=== PATIENT | female | born 1965 | race Caucasian/White ===

== ENCOUNTER 2017-01-24 13:13 | Observation (INO) | payer OTHER ==
[~2017-01-24] VITALS: Ht 182.9 cm; Wt 83.3 kg
[2017-01-24 17:01] LABS: HEMATOCRIT 45.2 % (36.0-46.0); MCH 30.3 PG (29.0-34.0); MCV 91.9 FL (83-99); MEAN PLAT.VOLUME 10.9 uM^3 (9.5-12.4); PLATELET COUNT 164 K/uL (156-360); RBC DIS.WIDTH-CV 14.2 % (11.8-14.6); RBC DIS.WIDTH-SD 47.3 % (39-53); RED BLOOD COUNT 4.92 M/uL (3.80-5.20); WHITE BLOOD COUNT 7.9 K/uL (4.1-10.2)
[2017-01-24] MEDS ORDERED: ABILIFY10 MG PO (17:15)
[2017-01-24] MEDS ORDERED: LYRICA150 MG PO (17:16)
[2017-01-24] MEDS ORDERED: DESYREL 150 MG150 MG PO (17:16)
[2017-01-24] MEDS ORDERED: CELEBREX200 MG PO (17:16)
[2017-01-24] MEDS ORDERED: POTASSIUM GLUCO99 M1 PO (17:17)
[2017-01-24] MEDS ORDERED: VITAMIN B-12500 MC5 SL (17:17)
[2017-01-24] MEDS ORDERED: LASIX20 MG PO (17:18)
[2017-01-24] MEDS ORDERED: ZESTRIL40 MG PO (17:18)
[2017-01-24] MEDS ORDERED: FEOSOL325 MG PO (17:18)
[2017-01-24 17:19] LABS: CHLORIDE 99 mEq/L (99-109); POTASSIUM 3.9 mEq/L (3.7-5.4); SODIUM 143 mEq/L (136-147)
[2017-01-24] MEDS ORDERED: ZYRTEC10 M3 PO (17:19)
[2017-01-24] MEDS ORDERED: PRAVACHOL20 MG PO (17:19)
[2017-01-24] MEDS ORDERED: TYLENOL EXTRA500 MG PO (17:19)
[2017-01-24] MEDS ORDERED: PRILOSEC20 MG PO (17:19)
[2017-01-24] MEDS ORDERED: COUGH DROPS1 EACH MM (17:20)
[2017-01-24] MEDS ORDERED: ROBITUSSIN100 MG/5 M PO (17:20)
[2017-01-24 17:21] LABS: GLUCOSE 139 mg/dL (70-99)
[2017-01-24 17:22] LABS: ANION GAP 10 MEQ/L (2-14)
[2017-01-24 17:25] LABS: GFR ESTIMATE (CALCULATED) > 59 mL/min/
[2017-01-24 17:26] LABS: UREA NITROGEN (BUN) 17 mg/dL (9-23)
[2017-01-24 23:46] VITALS: BP 128/68
[2017-01-25 03:32] VITALS: BP 130/64
[2017-01-25 07:33] LABS: ANION GAP 8 MEQ/L (2-14); CHLORIDE 102 MEQ/L (99-109); GFR ESTIMATE (CALCULATED) > 59 mL/min/; GLUCOSE 154 mg/dL (70-99); POTASSIUM 4.1 MEQ/L (3.7-5.4); SAMPLE HEMOLYSIS CHECK 0; SAMPLE ICTERIC CHECK 0; SAMPLE LIPEMIA CHECK 0; SODIUM 146 MEQ/L (136-147); UREA NITROGEN (BUN) 17 mg/dL (9-23)
[2017-01-25 08:17] VITALS: BP 127/67
[2017-01-25] MEDS ORDERED: AZITHROMYCIN500 M1 PO (08:24)
[2017-01-25] MEDS ORDERED: MEDROL DOSEPAK4 MG PO (08:24)
[2017-01-25] MEDS ORDERED: VENTOLIN HFA18 GM IH (08:25)
[2017-01-25] MEDS ORDERED: SPIRIVA RESPIMAT4 GM IH (08:25)
[2017-01-25] MEDS ORDERED: NICODERM CQ1 EAC1 TD (12:41)
[2017-01-26 00:02] VITALS: BP 128/66
[2017-01-26 07:49] VITALS: BP 120/68
[2017-01-26] MEDS ORDERED: ALBUTEROL2.5 MG/3 M IH (13:03)
[2017-01-26 17:40] VITALS: BP 120/61
[2017-01-26 23:55] VITALS: BP 101/63
[2017-01-27 07:37] VITALS: BP 129/77
[2017-01-27 07:38] VITALS: BP 129/77
[2017-01-27 16:14] VITALS: BP 129/75
[2017-01-28 00:07] VITALS: BP 117/67
[2017-01-28 07:18] VITALS: BP 119/67
[2017-01-28 15:00] VITALS: BP 128/68
[2017-01-29] VITALS: BP 90/55
[2017-01-29 07:45] VITALS: BP 108/64
[2017-01-29 16:27] VITALS: BP 120/50
== END 2017-01-29 19:37 | disposition home or self-care (01) ==
LOC: EME 13:13 → EDOF 17:39 → 5SOUTH 17:39 → ENRESERV 17:40 → 5SOUTH 19:39
PROVIDERS: Emergency Medicine; Hospitalist
DX: J44.1 Chronic obstructive pulmonary disease with (acute) exacerbation (principal); J96.11 Chronic respiratory failure with hypoxia; F17.210 Nicotine dependence, cigarettes, uncomplicated; Z99.81 Dependence on supplemental oxygen; E04.1 Nontoxic single thyroid nodule; I10 Essential (primary) hypertension; E78.5 Hyperlipidemia, unspecified; G89.29 Other chronic pain; Z98.1 Arthrodesis status; F12.90 Cannabis use, unspecified, uncomplicated; Z88.0 Allergy status to penicillin; Z82.49 Family history of ischemic heart disease and other diseases of the circulatory system; Z83.3 Family history of diabetes mellitus; Z80.0 Family history of malignant neoplasm of digestive organs
CPT/HCPCS: 71020; 76536; 80048; 84443; 85027; 94640; 94640 76; 94760; 94799; 99202; 99281; 99285; G0378; J1650; J2930; J7512

== ENCOUNTER 2017-08-25 18:20 | Inpatient (IN) | payer OTHER ==
[~2017-08-25] VITALS: Ht 182.9 cm; Wt 84.4 kg
[~2017-08-25 18:20] MED LIST: ABILIFY10 MG PO; ALBUTEROL2.5 MG/3 M IH; AZITHROMYCIN500 M1 PO; CELEBREX200 MG PO; COUGH DROPS1 EACH MM; DESYREL 150 MG150 MG PO; FEOSOL325 MG PO; LASIX20 MG PO; LYRICA150 MG PO; MEDROL DOSEPAK4 MG PO; NICODERM CQ1 EAC1 TD; POTASSIUM GLUCO99 M1 PO; PRAVACHOL20 MG PO; PRILOSEC20 MG PO; ROBITUSSIN100 MG/5 M PO; SPIRIVA RESPIMAT4 GM IH; TYLENOL EXTRA500 MG PO; VENTOLIN HFA18 GM IH; VITAMIN B-12500 MC5 SL; ZESTRIL40 MG PO; ZYRTEC10 M3 PO
[2017-08-25 19:15] LABS: HEMOGLOBIN 14.8 G/DL (11.9-15.5); MCH 31.4 PG (29.0-34.0); MCHC 32.9 G/DL (30.0-36.0); MCV 95.5 FL (83-99); RBC DIS.WIDTH-CV 13.3 % (11.8-14.6); RED BLOOD COUNT 4.71 M/uL (3.80-5.20); WHITE BLOOD COUNT 8.5 K/uL (4.1-10.2)
[2017-08-25 19:24] LABS: CHLORIDE 89 mEq/L (99-109); SODIUM 138 mEq/L (136-147)
[2017-08-25 19:26] LABS: GLUCOSE 107 mg/dL (70-99)
[2017-08-25 19:30] LABS: CREATININE 1.5 mg/dL (0.6-1.3); GFR ESTIMATE (CALCULATED) 39 mL/min/
[2017-08-25 19:31] LABS: UREA NITROGEN (BUN) 31 mg/dL (9-23)
[2017-08-25 19:43] LABS: TROP-I INTERPRETATION NEGATIVE; TROPONIN-I 0.02 ng/mL (0.0-0.30)
[2017-08-25 20:06] LABS: PLAT.SUFFICIENCY DECREASED
[2017-08-25 20:07] LABS: PLATELET COUNT 106 K/uL (156-360)
[2017-08-25] MEDS ORDERED: PROVENTIL,2.5 MG/3 M IH (21:45)
[2017-08-25] MEDS ORDERED: FLEXERIL5 MG PO (21:46)
[2017-08-25] MEDS ORDERED: LEXAPRO10 MG PO (21:46)
[2017-08-25] MEDS ORDERED: OXYCODONE HCL10 MG PO (21:46)
[2017-08-25] MEDS ORDERED: LYRICA200 MG PO (21:49)
[2017-08-25 23:17] LABS: BASE EXCESS 15.2 mEq/L (-3 to +3); BICARBONATE 48.6 mEq/L (22-26); CARBOXY HGB 16.2 % (0-5); METHEMOGLOBIN 0.8 % (0-1.5); PCO2 116 mm Hg (35-45); PO2 73 mm Hg (80-100); SITE RR; pH 7.23 (7.35-7.45)
[2017-08-25 23:18] LABS: COMMENTS - BLOOD GASES C+; DEVICE NC; O2 FLOW 4 L/MIN; TOTAL RESP RATE 12 resp/min
[2017-08-25 23:51] LABS: APPEARANCE CLEAR ((CLEAR)); BILIRUBIN NEGATIVE; BLOOD NEGATIVE; COLOR COLORLESS ((YELLOW)); GLUCOSE (STRIP) NEGATIVE; KETONES NEGATIVE; LEUKOCYTES NEGATIVE; NITRITE NEGATIVE; PROTEIN (STRIP) NEGATIVE; SPECIFIC GRAVITY 1.019 (1.000-1.030); UCUL ADDED? NO; UROBILINOGEN 0.2 MG/DL (0.2-1.0)
[2017-08-26] VITALS (22 sets, daily range): BP systolic 105–129; BP diastolic 49–72
[2017-08-26 00:26] LABS: CARBOXY HGB 13.9 % (0-5); PCO2 124 mm Hg (35-45); PO2 405 mm Hg (80-100); SITE RR; pH 7.19 (7.35-7.45)
[2017-08-26 00:27] LABS: COMMENTS - BLOOD GASES C+; DEVICE NRB MASK; FI02 100 %; O2 FLOW 15 L/MIN; TOTAL RESP RATE 12 resp/min
[2017-08-26 04:17] LABS: COMMENTS - BLOOD GASES C+; DEVICE VENT; FI02 30 %; MODE NIV SIMV; SITE RR
[2017-08-26 04:18] LABS: MECHANICAL RATE 20 resp/min; PCO2 96 mm Hg (35-45); PEEP 6 CM/H20; PO2 51 mm Hg (80-100); PRES. SUPPORT 10 CM/H2O; TIDAL VOLUME 385 ML; TOTAL RESP RATE 24 resp/min
[2017-08-26 04:19] LABS: CARBOXY HGB 11.4 % (0-5); METHEMOGLOBIN 0.9 % (0-1.5); O2 SATURATION (CALCULATED) 80.2 % (95-99)
[2017-08-26 04:20] LABS: BASE EXCESS 15.4 mEq/L (-3 to +3); BICARBONATE 47.2 mEq/L (22-26)
[2017-08-26 13:01] LABS: APPEARANCE CLEAR ((CLEAR)); BILIRUBIN NEGATIVE; BLOOD NEGATIVE; COLOR YELLOW ((YELLOW)); GLUCOSE (STRIP) NEGATIVE; KETONES NEGATIVE; LEUKOCYTES NEGATIVE; NITRITE NEGATIVE; PROTEIN (STRIP) 30; SPECIFIC GRAVITY 1.026 (1.000-1.030); UCUL ADDED? NO; UROBILINOGEN 0.2 MG/DL (0.2-1.0)
[2017-08-26 21:10] LABS: BASOPHIL (%) 0.1 % (0-1); EOSINOPHIL (%) 0 % (0-5); HEMATOCRIT 44.3 % (36.0-46.0); HEMOGLOBIN 13.9 G/DL (11.9-15.5); IMMATURE GRANULOCYTE (%) 0.4 % (0.0-0.7); LYMPHOCYTE (%) 6.4 % (15-42); LYMPHOCYTE COUNT 0.4 K/uL (1.0-2.8); MCH 30.2 PG (29.0-34.0); MCHC 31.4 G/DL (30.0-36.0); MCV 96.1 FL (83-99); MONOCYTE (%) 3.4 % (3-12); MONOCYTE COUNT 0.2 K/uL (0-0.8); NEUTROPHIL (%) 89.7 % (45-76); NEUTROPHIL COUNT 6.2 K/uL (1.8-6.4); PLATELET COUNT 108 K/uL (156-360); RBC DIS.WIDTH-CV 13.5 % (11.8-14.6); RBC DIS.WIDTH-SD 48.2 % (39-53); RED BLOOD COUNT 4.61 M/uL (3.80-5.20); WHITE BLOOD COUNT 6.9 K/uL (4.1-10.2)
[2017-08-26 21:46] LABS: CHLORIDE 97 MEQ/L (99-109); MAGNESIUM 1.7 mg/dl (1.3-2.7); PHOSPHORUS 1.9 mg/dL (2.5-4.9); POTASSIUM 3.8 MEQ/L (3.7-5.4); SODIUM 142 MEQ/L (136-147); UREA NITROGEN (BUN) 22 mg/dL (9-23)
[2017-08-26 22:26] LABS: CREATININE 0.8 MG/DL (0.6-1.3); GFR ESTIMATE (CALCULATED) > 59 mL/min/; GLUCOSE 240 mg/dL (70-99)
[2017-08-26 22:27] LABS: CARBON DIOXIDE (BICARBONATE) > 40.0 MEQ/L (20-31)
[2017-08-26 23:26] LABS: COMMENTS - BLOOD GASES C+; DEVICE NC; O2 FLOW 3 L/MIN; SITE RR; TOTAL RESP RATE 16 resp/min
[2017-08-26 23:27] LABS: O2 SATURATION (CALCULATED) 88.7 % (95-99); PCO2 91 mm Hg (35-45); PO2 57 mm Hg (80-100); pH 7.35 (7.35-7.45)
[2017-08-26 23:28] LABS: BASE EXCESS 19.3 mEq/L (-3 to +3); BICARBONATE 50.2 mEq/L (22-26); CARBOXY HGB 3.8 % (0-5)
[2017-08-27] VITALS (19 sets, daily range): BP systolic 100–137; BP diastolic 58–90
[2017-08-27 05:28] LABS: HEMATOCRIT 44.5 % (36.0-46.0); HEMOGLOBIN 13.8 G/DL (11.9-15.5); MCV 96.7 FL (83-99); PLATELET COUNT 110 K/uL (156-360); RBC DIS.WIDTH-CV 13.6 % (11.8-14.6); RBC DIS.WIDTH-SD 48.5 % (39-53)
[2017-08-27 06:01] LABS: CARBOXY HGB 2.4 % (0-5); COMMENTS - BLOOD GASES C+; DEVICE NC; METHEMOGLOBIN 1.1 % (0-1.5); O2 FLOW 4 L/MIN; O2 SATURATION (CALCULATED) 93.1 % (95-99); PCO2 91 mm Hg (35-45); PO2 86 mm Hg (80-100); SITE RR; TOTAL RESP RATE 20 resp/min; pH 7.32 (7.35-7.45)
[2017-08-27 06:02] LABS: BASE EXCESS 15.8 mEq/L (-3 to +3); BICARBONATE 46.9 mEq/L (22-26)
[2017-08-27 06:28] LABS: CHLORIDE 98 MEQ/L (99-109); CREATININE 0.4 MG/DL (0.6-1.3); GFR ESTIMATE (CALCULATED) > 59 mL/min/; GLUCOSE 165 mg/dL (70-99); POTASSIUM 4.3 MEQ/L (3.7-5.4); SODIUM 144 MEQ/L (136-147); UREA NITROGEN (BUN) 23 mg/dL (9-23)
[2017-08-27 06:36] LABS: CARBON DIOXIDE (BICARBONATE) > 40.0 MEQ/L (20-31)
[2017-08-27 07:07] LABS: PHOSPHORUS 3.4 mg/dL (2.5-4.9)
[2017-08-27 11:42] LABS: THYROTROPIN (TSH) 0.13 MIU/L (0.4-5.5)
[2017-08-28] VITALS (14 sets, daily range): BP systolic 112–134; BP diastolic 63–86
[2017-08-28 05:12] LABS: HEMATOCRIT 44.8 % (36.0-46.0); MCH 29.2 PG (29.0-34.0); MCHC 31.3 G/DL (30.0-36.0); MCV 93.5 FL (83-99); PLATELET COUNT 111 K/uL (156-360); RBC DIS.WIDTH-CV 13.5 % (11.8-14.6); RBC DIS.WIDTH-SD 46.7 % (39-53); RED BLOOD COUNT 4.79 M/uL (3.80-5.20)
[2017-08-28 06:01] LABS: CHLORIDE 100 MEQ/L (99-109); CREATININE 0.4 MG/DL (0.6-1.3); GFR ESTIMATE (CALCULATED) > 59 mL/min/; GLUCOSE 165 mg/dL (70-99); POTASSIUM 4.2 MEQ/L (3.7-5.4); SODIUM 144 MEQ/L (136-147); UREA NITROGEN (BUN) 26 mg/dL (9-23)
[2017-08-28 08:23] LABS: CARBOXY HGB 1.6 % (0-5); COMMENTS - BLOOD GASES A+C+; DEVICE NC; METHEMOGLOBIN 0.8 % (0-1.5); O2 FLOW 2 L/MIN; PCO2 71 mm Hg (35-45); PO2 58 mm Hg (80-100); SITE RR; TOTAL RESP RATE 21 resp/min; pH 7.38 (7.35-7.45)
[2017-08-28 08:24] LABS: BASE EXCESS 13.1 mEq/L (-3 to +3)
[2017-08-29 04:00] VITALS: BP 125/62
[2017-08-29 05:03] LABS: HEMATOCRIT 43.6 % (36.0-46.0); HEMOGLOBIN 14.1 G/DL (11.9-15.5); MCH 30.5 PG (29.0-34.0); MCHC 32.3 G/DL (30.0-36.0); MCV 94.2 FL (83-99); PLATELET COUNT 113 K/uL (156-360); RBC DIS.WIDTH-CV 13.7 % (11.8-14.6); RBC DIS.WIDTH-SD 47.8 % (39-53); RED BLOOD COUNT 4.63 M/uL (3.80-5.20); WHITE BLOOD COUNT 6.9 K/uL (4.1-10.2)
[2017-08-29 05:15] LABS: SODIUM 144 mEq/L (136-147)
[2017-08-29 05:16] LABS: GLUCOSE 165 mg/dL (70-99)
[2017-08-29 05:17] LABS: CHLORIDE 98 mEq/L (99-109); POTASSIUM 5.1 mEq/L (3.7-5.4)
[2017-08-29 05:20] LABS: CREATININE 0.6 mg/dL (0.6-1.3); GFR ESTIMATE (CALCULATED) > 59 mL/min/
[2017-08-29 05:21] LABS: UREA NITROGEN (BUN) 32 mg/dL (9-23)
[2017-08-29 07:43] VITALS: BP 129/71
[2017-08-29 10:42] VITALS: BP 125/66
[2017-08-29 15:28] VITALS: BP 131/79
[2017-08-29 18:50] VITALS: BP 126/70
[2017-08-30 00:56] VITALS: BP 126/64
[2017-08-30 05:08] LABS: MCH 29.7 PG (29.0-34.0); MCHC 31.8 G/DL (30.0-36.0); MCV 93.2 FL (83-99); PLATELET COUNT 118 K/uL (156-360); RBC DIS.WIDTH-CV 13.5 % (11.8-14.6); RBC DIS.WIDTH-SD 45.8 % (39-53); RED BLOOD COUNT 4.72 M/uL (3.80-5.20); WHITE BLOOD COUNT 5.5 K/uL (4.1-10.2)
[2017-08-30 06:02] LABS: CHLORIDE 97 MEQ/L (99-109); CREATININE 0.5 MG/DL (0.6-1.3); GFR ESTIMATE (CALCULATED) > 59 mL/min/; GLUCOSE 149 mg/dL (70-99); POTASSIUM 4.6 MEQ/L (3.7-5.4); SODIUM 142 MEQ/L (136-147); UREA NITROGEN (BUN) 24 mg/dL (9-23)
[2017-08-30 06:27] LABS: CARBON DIOXIDE (BICARBONATE) > 40.0 MEQ/L (20-31)
[2017-08-30 07:20] VITALS: BP 138/79
[2017-08-30 11:05] VITALS: BP 137/65
[2017-08-30 15:40] VITALS: BP 144/77
[2017-08-30 16:54] LABS: BICARBONATE 41.5 mEq/L (22-26); CARBOXY HGB 1.3 % (0-5); PCO2 64 mm Hg (35-45); PO2 71 mm Hg (80-100); pH 7.42 (7.35-7.45)
[2017-08-30 16:55] LABS: BASE EXCESS 13.6 mEq/L (-3 to +3); SITE LR
[2017-08-30 16:56] LABS: COMMENTS - BLOOD GASES A+C+; DEVICE NC; O2 FLOW 2 L/MIN
[2017-08-30 19:30] VITALS: BP 140/82
[2017-08-31 00:30] VITALS: BP 130/69
[2017-08-31 05:11] LABS: HEMATOCRIT 44.6 % (36.0-46.0); HEMOGLOBIN 14.4 G/DL (11.9-15.5); MCH 29.7 PG (29.0-34.0); MCHC 32.3 G/DL (30.0-36.0); PLATELET COUNT 111 K/uL (156-360); RBC DIS.WIDTH-CV 13.2 % (11.8-14.6); RBC DIS.WIDTH-SD 45.1 % (39-53); RED BLOOD COUNT 4.85 M/uL (3.80-5.20); WHITE BLOOD COUNT 5.7 K/uL (4.1-10.2)
[2017-08-31 05:39] VITALS: BP 137/86
[2017-08-31 05:47] LABS: CHLORIDE 96 MEQ/L (99-109); CREATININE 0.4 MG/DL (0.6-1.3); GFR ESTIMATE (CALCULATED) > 59 mL/min/; GLUCOSE 119 mg/dL (70-99); POTASSIUM 4.3 MEQ/L (3.7-5.4); SODIUM 143 MEQ/L (136-147); UREA NITROGEN (BUN) 17 mg/dL (9-23)
[2017-08-31 06:07] LABS: CARBON DIOXIDE (BICARBONATE) > 40.0 MEQ/L (20-31)
[2017-08-31 08:00] VITALS: BP 142/85
[2017-08-31] MEDS ORDERED: NICOTINE PATCH1 EAC1 TD (10:48)
[2017-08-31] MEDS ORDERED: PREDNISONE20 MG PO (10:49)
[2017-08-31] MEDS ORDERED: THEOPHYLLINE400 MG PO (10:49)
[2017-08-31] MEDS ORDERED: KEFLEX500 MG PO (10:50)
[2017-08-31] MEDS ORDERED: NICOTINE PATCH1 EAC2 TD (14:03)
== END 2017-08-31 17:50 | disposition home or self-care (01) | DRG 189 ==
LOC: EME 18:20 → 4WEST 22:05 → EDOF 22:05 → ENRESERV 22:06 → ENRESERVDT 08-26 00:36 → ENRESERVTM 08-26 00:36 → 4WEST 08-26 01:06 → ENRESERV 08-28 18:13 → 4EAST 08-28 20:17 → ENPENDDIS 08-31 → 4EAST 08-31 17:50
PROVIDERS: Emergency Medicine; Family Medicine; Internal Medicine; Internal Medicine Critical Care Medicine; Internal Medicine Pulmonary Disease; Obstetrics & Gynecology
DX: J96.22 Acute and chronic respiratory failure with hypercapnia (principal); J18.9 Pneumonia, unspecified organism; J44.1 Chronic obstructive pulmonary disease with (acute) exacerbation; J44.0 Chronic obstructive pulmonary disease with (acute) lower respiratory infection; E86.0 Dehydration; Z99.81 Dependence on supplemental oxygen; E87.2 Acidosis; E78.5 Hyperlipidemia, unspecified; F17.210 Nicotine dependence, cigarettes, uncomplicated; F31.9 Bipolar disorder, unspecified; I10 Essential (primary) hypertension; Z98.1 Arthrodesis status; Z91.19 Patient's noncompliance with other medical treatment and regimen; J96.01 Acute respiratory failure with hypoxia; R73.9 Hyperglycemia, unspecified; T38.0X5A Adverse effect of glucocorticoids and synthetic analogues, initial encounter; F41.9 Anxiety disorder, unspecified
CPT/HCPCS: 36600; 71046; 71275; 80048; 81003; 82803; 82948; 83605; 83735; 84100; 84439; 84443; 84484; 85025; 85027; 87040; 87070; 87205; 87449; 87641; 93005; 93306; 94002; 94640; 94640 76; 94760; 94799; 99202; 99281; 99285; J0456; J0696; J1650; J1815; J2310; J2920; J7030; J7050; J7512